=== PATIENT | male | born 1990 | race African-American/Black ===

== ENCOUNTER 2019-03-07 19:03 | Emergency (ER) | payer SELFPAY ==
--- NOTE | 2019-03-07 19:18 | EDM.PDOC ---
ED HPI GENERAL MEDICAL PROBLEM - General Chief Complaint: Respiratory Problem Stated Complaint: PT HAS BRONCHITIS Time Seen by Provider: 03/07/19 19:11 Source of Information: Reports: Patient History Limitations: Reports: No Limitations - History of Present Illness INITIAL COMMENTS - FREE TEXT/NARRATIVE: History of present illness: []Patient has been living in [place] for the last 7 months and has been using his aunts inhaler. He does not have a primary care doctor and states that he has no energy has been coughing and has chest soreness with coughing. He denies any fevers, chills or nausea or vomiting. Review of systems: As per history of present illness and below otherwise all systems reviewed and negative. Past medical history: As per history of present illness and as reviewed below otherwise noncontributory. Surgical history: As per history of present illness and as reviewed below otherwise noncontributory. Social history: No reported history of drug or alcohol abuse. Family history: As per history of present illness and as reviewed below otherwise noncontributory. Physical exam: General: Well developed, well nourished in NAD HEENT: Atraumatic, normocephalic, pupils reactive, negative for conjunctival pallor or scleral icterus, mucous membranes moist, throat clear, neck supple, nontender, trachea midline. Lungs: Basilar expiratory wheezing no accessory muscle use no rhonchi, to auscultation, breath sounds equal bilaterally, chest nontender. Heart: S1S2, regular, negative for clicks, rubs, or JVD. Abdomen: NABS, Soft, nondistended, nontender. Negative for masses or hepatosplenomegaly. Negative for costovertebral tenderness. Pelvis: Stable nontender. Genitourinary: Deferred. Rectal: Deferred. Extremities: Atraumatic, negative for cords or calf pain. Neurovascular unremarkable. Neuro: Awake, alert, oriented. Cranial nerves II through XII unremarkable. Cerebellum unremarkable. Motor and sensory unremarkable throughout. Exam nonfocal. Skin:warm and dry Diagnostics: None Therapeutics: None ED Course: Stable Impression: Chronic asthma, med refill Prescriptions: Albuterol, prednisone 5 day burst Plan: Follow-up with primary care, take meds as directed return if symptoms worsen or change. Definitive disposition and diagnosis as appropriate pending reevaluation and review of above. - Related Data Allergies Allergy/AdvReac Type Severity Reaction Status Date / Time No Known Allergies Allergy Verified 03/07/19 19:15 Home Meds: Home Meds Albuterol Sulfate [Albuterol Sulfate Hfa] 8.5 gm IH ASDIRECTED 03/07/19 [History ] Albuterol [Ventolin HFA] 2 puff INH Q4HR PRN #1 inhaler 03/07/19 [Rx] predniSONE [Prednisone] 20 mg PO DAILY #5 tablet 03/07/19 [Rx] ED ROS GENERAL - Review of Systems Review Of Systems: See Below ED EXAM, GENERAL - Physical Exam Exam: See Below Course - Vital Signs Last Recorded V/S: Last Vital Signs Temp 97.1 F 03/07/19 19:15 Pulse 96 03/07/19 19:15 Resp 18 03/07/19 19:15 BP 131/94 H 03/07/19 19:15 Pulse Ox 96 03/07/19 19:15 Departure - Departure Time of Disposition: 19:19 Disposition: Home, Self-Care 01 Condition: Good Clinical Impression: Medication refill Chronic asthma Qualifiers: Asthma severity: mild Asthma persistence: intermittent Asthma complication type : uncomplicated Qualified Code(s): J45.20 - Mild intermittent asthma, uncomplicated - Discharge Information *PRESCRIPTION DRUG MONITORING PROGRAM REVIEWED*: No *COPY OF PRESCRIPTION DRUG MONITORING REPORT IN PATIENT SARBJIT: No Prescriptions: Albuterol [Ventolin HFA] 2 puff INH Q4HR PRN #1 inhaler PRN Reason: Shortness Of Breath predniSONE [Prednisone] 20 mg PO DAILY #5 tablet Referrals: PCP,None [Primary Care Provider] - Forms: ED Department Discharge Additional Instructions: The following information is given to patients seen in the emergency department who are being discharged to home. This information is to outline your options for follow-up care. We provide all patients seen in our emergency department with a follow-up referral. The need for follow-up, as well as the timing and circumstances, are variable depending upon the specifics of your emergency department visit. If you don't have a primary care physician on staff, we will provide you with a referral. We always advise you to contact your personal physician following an emergency department visit to inform them of the circumstance of the visit and for follow-up with them and/or the need for any referrals to a consulting specialist. The emergency department will also refer you to a specialist when appropriate. This referral assures that you have the opportunity for follow-up care with a specialist. All of these measure are taken in an effort to provide you with optimal care, which includes your follow-up. Under all circumstances we always encourage you to contact your private physician who remains a resource for coordinating your care. When calling for follow-up care, please make the office aware that this follow-up is from your recent emergency room visit. If for any reason you are refused follow-up, please contact the [facility] Emergency Department at and asked to speak to the emergency department charge nurse. Take meds as directed, follow up with your primary care physician, return to ER if symptoms worsen or change. [facility] Primary Care [facility] [place] [id number]
== END 2019-03-07 19:30 | disposition home or self-care (01) ==
LOC: MW.ED 19:03
DX: J45.20 Mild intermittent asthma, uncomplicated (principal); Z76.0 Encounter for issue of repeat prescription; Z79.899 Other long term (current) drug therapy
CPT/HCPCS: 99282; 99283

== ENCOUNTER 2020-05-29 10:25 | Emergency (ER) | payer SELFPAY ==
[2020-05-29] MEDS ORDERED: cefTRIAXone 1 GM Vial IM ONE (11:11)
[2020-05-29] MEDS ORDERED: Azithromycin 250 MG Tab PO ONE (11:12)
--- NOTE | 2020-05-29 11:20 | EDM.PDOC ---
ED HPI GENERAL MEDICAL PROBLEM - General Chief Complaint: Genitourinary Problem Stated Complaint: ABDOMINAL PAIN Time Seen by Provider: 05/29/20 10:47 Source of Information: Reports: Patient History Limitations: Reports: No Limitations - History of Present Illness INITIAL COMMENTS - FREE TEXT/NARRATIVE: Patient presents with a 4 to 5-day history of burning and itch nation and a penile discharge. Patient reports a new sex partner. He is otherwise healthy without chronic medical problems and takes no medications. He has had no back pain, fever, nausea or vomiting. Does have some tenderness in the low left groin. - Related Data Allergies Allergy/AdvReac Type Severity Reaction Status Date / Time No Known Allergies Allergy Verified 03/07/19 19:15 Home Meds: Home Meds Albuterol Sulfate [Albuterol Sulfate Hfa] 8.5 gm IH ASDIRECTED 03/07/19 [History] Albuterol [Ventolin HFA] 2 puff INH Q4HR PRN #1 inhaler 03/07/19 [Rx] predniSONE [Prednisone] 20 mg PO DAILY #5 tablet 03/07/19 [Rx] Past Medical History HEENT History: Reports: None Cardiovascular History: Reports: None Respiratory History: Reports: None Gastrointestinal History: Reports: None Genitourinary History: Reports: None Musculoskeletal History: Reports: None Neurological History: Reports: None Psychiatric History: Reports: None Endocrine/Metabolic History: Reports: None Insulin Pump Model and Meal Attendant: N/A Hematologic History: Reports: None Immunologic History: Reports: None Oncologic (Cancer) History: Reports: None Dermatologic History: Reports: None - Infectious Disease History Infectious Disease History: Reports: None - Past Surgical History Head Surgeries/Procedures: Reports: None Social & Family History - Family History Family Medical History: No Pertinent Family History - Caffeine Use Caffeine Use: Reports: None ED ROS GENERAL - Review of Systems Review Of Systems: Comprehensive ROS is negative, except as noted in HPI. ED EXAM, RENAL/ - Physical Exam Exam: See Below Exam Limited By: No Limitations General Appearance: Alert, No Apparent Distress Ears: Normal External Exam Nose: Normal Inspection Throat/Mouth: Normal Inspection Head: Atraumatic, Normocephalic Neck: Normal Inspection Respiratory/Chest: No Respiratory Distress, Lungs Clear, Normal Breath Sounds Cardiovascular: Normal Peripheral Pulses, Regular Rate, Rhythm, No Murmur GI/Abdominal: Soft (Male) Exam: Urethral Discharge, Other (Left inguinal tenderness without associated mass, lesion). No: Penile Lesions, Scrotum Tenderness (R), Testicular Tenderness (L), Testicular Tenderness (R) Back Exam: Normal Inspection Extremities: Normal Inspection Neurological: Alert, Oriented Psychiatric: Normal Affect, Normal Mood Skin Exam: Warm, Dry, Intact, Normal Color, No Rash Lymphatic: No Adenopathy Course - Orders/Labs/Meds Orders: Active Orders 24 hr Category Date Time Status CHLAMYDIA AND GONORRHEA BY TMA Stat Lab 05/29/20 10:55 Received Labs: Laboratory Tests 05/29/20 Range/Units 10:55 Urine Color YELLOW Urine Appearance SLT CLOUDY Urine pH 7.5 (5.0-8.0) Ur Specific Mcdougal 1.020 (1.001-1.035) Urine Protein NEGATIVE (NEGATIVE) mg/dL Urine Glucose (UA) NEGATIVE (NEGATIVE) mg/dL Urine Ketones NEGATIVE (NEGATIVE) mg/dL Urine Occult Blood TRACE-INTACT H (NEGATIVE) Urine Nitrite NEGATIVE (NEGATIVE) Urine Bilirubin NEGATIVE (NEGATIVE) Urine Urobilinogen 0.2 (<2.0) EU/dL Ur Leukocyte Esterase TRACE H (NEGATIVE) Urine RBC 1-3 (0-2/HPF) Urine WBC 3-6 (0-5/HPF) Ur Epithelial Cells RARE (NONE-FEW) Urine Bacteria RARE (NEGATIVE) Meds: Medications Discontinued Medications Generic Name Dose Route Start Last Admin Trade Name Freq PRN Reason Stop Dose Admin Azithromycin 1,000 mg 05/29/20 11:12 Zithromax PO 05/29/20 11:13 Q24H ONE Ceftriaxone Sodium 1 gm 05/29/20 11:11 Rocephin IM 05/29/20 11:12 ONETIME ONE Departure - Departure Time of Disposition: 12:33 Disposition: Home, Self-Care 01 Condition: Good Clinical Impression: STD (male) - Discharge Information *PRESCRIPTION DRUG MONITORING PROGRAM REVIEWED*: Not Applicable *COPY OF PRESCRIPTION DRUG MONITORING REPORT IN PATIENT SARBJIT: Not Applicable Referrals: PCP,None [Primary Care Provider] - [facility] [Outside] [facility] [Outside] Forms: ED Department Discharge Additional Instructions: The following information is given to patients seen in the emergency department who are being discharged to home. This information is to outline your options for follow-up care. We provide all patients seen in our emergency department with a follow-up referral. The need for follow-up, as well as the timing and circumstances, are variable depending upon the specifics of your emergency department visit. If you don't have a primary care physician on staff, we will provide you with a referral. We always advise you to contact your personal physician following an emergency department visit to inform them of the circumstance of the visit and for follow-up with them and/or the need for any referrals to a consulting specialist. The emergency department will also refer you to a specialist when appropriate. This referral assures that you have the opportunity for follow-up care with a specialist. All of these measure are taken in an effort to provide you with optimal care, which includes your follow-up. Under all circumstances we always encourage you to contact your private physician who remains a resource for coordinating your care. When calling for follow-up care, please make the office aware that this follow-up is from your recent emergency room visit. If for any reason you are refused follow-up, please contact the [facility] Emergency D epartment at and asked to speak to the emergency department charge nurse. 1. Avoid all sexual contact until your partners have been evaluated and adequately treated. 2. Drink plenty of oral fluids. 3. Your STD test has been sent to the state lab. You will be phoned with the results. 4. Be certain to inform all your sexual partners. - My Orders Last 24 Hours: My Active Orders 05/29/20 10:55 CHLAMYDIA AND GONORRHEA BY TMA Stat - Assessment/Plan Last 24 Hours: My Active Orders 05/29/20 10:55 CHLAMYDIA AND GONORRHEA BY TMA Stat
[2020-05-29] MEDS ORDERED: cefTRIAXone 1 GM in Lidocaine 1% 4 ML IM ONE (12:44)
[2020-06-01 11:03] LABS: C.TRACHOMATIS BY TMA Positive (Negative); N.GONORRHOEAE BY TMA Positive (Negative)
== END 2020-05-29 13:00 | disposition home or self-care (01) ==
LOC: MW.ED 10:25
DX: A64 Unspecified sexually transmitted disease (principal)
CPT/HCPCS: 81001; 87491; 87591; 96372; 99283; A9270; J0696; J2001

== ENCOUNTER 2021-01-31 00:34 | Emergency (ER) | payer SELFPAY ==
[2021-01-31] MEDS ORDERED: Albuterol/Ipratropium 4 GM Inhalation Spray INH PRN (01:08)
[2021-01-31] MEDS ORDERED: Albuterol 8 GM Inhaler INH ONE (01:10)
--- NOTE | 2021-01-31 01:10 | EDM.PDOC ---
ED HPI GENERAL MEDICAL PROBLEM - General Chief Complaint: Asthma Stated Complaint: ASTHMA Time Seen by Provider: 01/31/21 00:52 - History of Present Illness INITIAL COMMENTS - FREE TEXT/NARRATIVE: 30-year-old male with a history of asthma was on Symbicort until the end of November when he ran out and has been unable to refill it. For the last 2- 3 days patient has had some shortness of breath he has not had an albuterol inhaler. He does have a history of asthma when he was very young it was quite severe at the end went away for several years but is come back over the last for 5 years. There is no chest pain there is no syncope or near syncope no abdominal pain no nausea or vomiting. Symptoms are without exacerbating factors alleviating factors radiation or other associated symptoms. - Related Data Allergies Allergy/AdvReac Type Severity Reaction Status Date / Time No Known Allergies Allergy Verified 01/31/21 00:57 Home Meds: Home Meds Albuterol Sulfate [Albuterol Sulfate Hfa] 8.5 gm IH ASDIRECTED 03/07/19 [History] Albuterol [Ventolin HFA] 2 puff INH Q4HR PRN #1 inhaler 03/07/19 [Rx] predniSONE [Prednisone] 20 mg PO DAILY #5 tablet 03/07/19 [Rx] Past Medical History - Past Health History Medical/Surgical History: Denies Medical/Surgical History HEENT History: Reports: None Cardiovascular History: Reports: None Respiratory History: Reports: Asthma Gastrointestinal History: Reports: None Genitourinary History: Reports: None Musculoskeletal History: Reports: None Neurological History: Reports: None Psychiatric History: Reports: None Endocrine/Metabolic History: Reports: None Insulin Pump Model and Machine Room Operator: N/A Hematologic History: Reports: None Immunologic History: Reports: None Oncologic (Cancer) History: Reports: None Dermatologic History: Reports: None - Infectious Disease History Infectious Disease History: Reports: None - Past Surgical History Head Surgeries/Procedures: Reports: None Social & Family History - Family History Family Medical History: No Pertinent Family History - Tobacco Use Tobacco Use Status *Q: Current Some Day Tobacco User Years of Tobacco use: 10 Packs/Tins Daily: 0.5 - Caffeine Use Caffeine Use: Reports: Coffee - Recreational Drug Use Recreational Drug Use: No ED ROS GENERAL - Review of Systems Review Of Systems: See Below Free Text/Narrative/Comment: General: No fever. ENT: No sore throat. Neck: No neck stiffness. Respiratory: Per HPI Cardiac: No chest pain. Gastrointestinal: No nausea, vomiting or abdominal pain. ED EXAM, GENERAL - Physical Exam Exam: See Below Free Text/Narrative:: General Appearance: No acute distress, appears comfortable Skin: No rash HEENT: Normocephalic/atraumatic, sclera anicteric, mucous membranes moist Neck: Normal range of motion Chest and Lungs: Bilateral breath sounds, scant end expiratory wheezing diffusely Cardiovascular: Regular rate and rhythm, no murmur Musculoskeletal: No edema or tenderness Neurologic: Awake, alert, no obvious deficits, moving all extremities Psychiatric: Appropriate, cooperative Course - Vital Signs Last Recorded V/S: Last Vital Signs Temp 97.3 F 01/31/21 00:45 Pulse 84 01/31/21 00:45 Resp 18 01/31/21 00:45 BP 120/85 01/31/21 00:45 Pulse Ox 97 01/31/21 00:45 Departure - Departure Time of Disposition: 01:09 Disposition: Home, Self-Care 01 Condition: Good Clinical Impression: Asthma - Discharge Information *PRESCRIPTION DRUG MONITORING PROGRAM REVIEWED*: Not Applicable *COPY OF PRESCRIPTION DRUG MONITORING REPORT IN PATIENT SARBJIT: Not Applicable Instructions: Asthma, Adult Additional Instructions: Please be sure to make an appointment with your primary care provider. If your symptoms worsen or do not improve with the inhaler please call your primary care doctor or return to the ER. [facility] - Primary Care [address] [place] [address] [place] [address] The following information is given to patients seen in the emergency department who are being discharged to home. This information is to outline your options for follow-up care. We provide all patients seen in our emergency department with a follow-up referral. The need for follow-up, as well as the timing and circumstances, are variable depending upon the specifics of your emergency department visit. If you don't have a primary care physician on staff, we will provide you with a referral. We always advise you to contact your personal physician following an emergency department visit to inform them of the circumstance of the visit and for follow-up with them and/or the need for any referrals to a consulting specialist. The emergency department will also refer you to a specialist when appropriate. This referral assures that you have the opportunity for follow-up care with a specialist. All of these measure are taken in an effort to provide you with optimal care, which includes your follow-up. Under all circumstances we always encourage you to contact your private physician who remains a resource for coordinating your care. When calling for follow-up care, please make the office aware that this follow-up is from your recent emergency room visit. If for any reason you are refused follow-up, please contact the [facility] Emergency Department at and asked to speak to the emergency department charge nurse. Sepsis Event Note (ED) - Evaluation Sepsis Screening Result: No Definite Risk - Focused Exam Vital Signs: Vital Signs Temp Pulse Resp BP Pulse Ox 01/31/21 00:45 97.3 F 84 18 120/85 97 - Assessment/Plan Assessment:: 30-year-old male presenting with mild asthma exacerbation. Normal work of breathing no acute distress no findings that would suggest pneumonia or PE no findings that would suggest ACS. Patient given 2 puffs of an albuterol inhaler with good response patient care is to follow-up with primary care provider.
== END 2021-01-31 01:27 | disposition home or self-care (01) ==
LOC: MW.ED 00:34
DX: J45.909 Unspecified asthma, uncomplicated (principal); Z72.0 Tobacco use; Z79.899 Other long term (current) drug therapy
CPT/HCPCS: 99284; A9270

== ENCOUNTER 2024-02-05 09:01 | Emergency (ER) | payer SELFPAY | END 2024-02-05 11:35 | disposition home or self-care (01) | LOC: MW.ED 09:01 | DX: J02.9 Acute pharyngitis, unspecified (principal); J45.909 Unspecified asthma, uncomplicated; F17.210 Nicotine dependence, cigarettes, uncomplicated; Z79.899 Other long term (current) drug therapy | CPT/HCPCS: 87651-QW; 99283 ==

== ENCOUNTER 2024-04-24 08:27 | Emergency (ER) | payer SELFPAY | END 2024-04-24 09:34 | disposition home or self-care (01) | LOC: MW.ED 08:27 | DX: H10.9 Unspecified conjunctivitis (principal); J45.909 Unspecified asthma, uncomplicated | CPT/HCPCS: 99282 ==